=== PATIENT | female | born 1935 | race Caucasian/White ===

== ENCOUNTER 2018-12-08 01:05 | Inpatient (IN) | payer MEDICARE ==
[~2018-12-08] VITALS: Ht 157.5 cm; Wt 81.6 kg
[~2018-12-08 01:05] MED LIST: FLORANEX / LACT1 TAB PO; LOPRESSOR25 MG PO; MULTI-DAY VITAM1 TAB PO; OMEGA-3100 MG PO; PERCOCET 10/3251 TA1 PO; PROTONIX40 MG PO; SYNTHROID75 MCG PO; ZOLOFT25 MG PO
[2018-12-08 02:06] VITALS: BP 180/79
[2018-12-08 02:45] VITALS: BP 180/79; BMI 33.0
[2018-12-08] MEDS ORDERED: FISH OIL 1,0001 CA1 PO (03:25)
[2018-12-08] MEDS ORDERED: HYDROCHLOROTH12.5 M1 PO (03:26)
[2018-12-08] MEDS ORDERED: HYDROCODON-ACE1 EAC7 PO ×2 (03:28→03:29)
[2018-12-08] MEDS ORDERED: TOPROL XL100 MG PO (03:30)
[2018-12-08] MEDS ORDERED: OXYBUTYNIN CHLOR5 MG PO (03:33)
[2018-12-08] MEDS ORDERED: MIRALAX17 GM PO (03:35)
[2018-12-08] MEDS ORDERED: SEROQUEL50 MG PO (03:37)
[2018-12-08] MEDS ORDERED: XARELTO10 MG PO (03:39)
[2018-12-08] MEDS ORDERED: VITAMIN B-1100 M1 PO (03:41)
[2018-12-08] MEDS ORDERED: TRAZODONE HCL150 MG PO (03:42)
--- NOTE | 2018-12-08 03:44 | NUR ---
NEW PATIENT TO DOCTOR JOSE ON [facility] FROM [facility] FOR AGGRESSION. PATIENT WAS YELLING, THROWING SELF IN FLOOR, AND REFUSING CARE AT [facility]. PATIENT TRANSPORTED TO [facility] VIA EMS ON STRETCHER. UPON ARRIVAL, PATIENT WAS COOPERATIVE WITH CARE AND ADMISSION ASSESSMENTS. CONSENTS TO TREAT RECEIVED FROM PATIENT. PATIENT WANTS TO BE A FULL CODE. CODE WORD IS [place]. PATIENT LAYING IN BED WITH EYES OPEN WHILE REPEATEDLY COUNTING AND SAYING RANDOM WORDS.
[2018-12-08 06:51] LABS: BASOPHILS 0.3 % (0-2); EOSINOPHILS 3.7 % (0-7); HEMATOCRIT 36.6 % (36.0-48.0); HEMOGLOBIN 11.9 g/dL (12-16); IMMATURE GRANULOCYTES 0.5 % (0-5); LYMPHOCYTES 17.2 % (15-50); MCH 30.7 pg (26.0-34.0); MCHC 32.5 g/dL (31.0-37.0); MCV 94.6 fL (80.0-100.0); MEAN PLATELET VOLUME 10.4 fL (7.4-10.4); MONOCYTES 8.1 % (2-11); NEUTROPHILS 70.2 % (40-80); RBC 3.87 10x6/uL (4.00-5.40); RDW 14.3 % (11.5-14.5); WBC 11.8 10x3/uL (4.8-10.8)
[2018-12-08 06:59] LABS: PLATELET COUNT 400 10x3/uL (130-400)
[2018-12-08 07:14] LABS: ALBUMIN 2.9 g/dL (3.4-5.0); ANION GAP 19.1 mmol/L (8-16); BILIRUBIN - TOTAL 0.62 mg/dL (0.2-1.3); CALCIUM 8.9 mg/dL (8.5-10.1); CARBON DIOXIDE 22.9 mmol/L (21.0-32.0); CHOL - HDL RATIO 3.1 ratio (2.3-4.1); LDL-HDL RATIO 1.8 ratio (1.5-3.5); PROTEIN - SERUM 6.5 g/dL (6.4-8.2); THYROID STIMULATING HORMONE 6.39 uIU/mL (0.36-3.74)
[2018-12-08 09:59] VITALS: BMI 33.0
[2018-12-08 14:17] VITALS: Ht 157.5 cm; Wt 81.6 kg
--- NOTE | 2018-12-08 16:49 | NUR ---
confused and disoriented.yelling out,repeatedly saying same words and phrases over and over.flight of ideas.repeatedly counting.will not redirect.refused am meds.requires spoon feeding per staff. was here at 1430 and ordered 12mg ativan im now.had good response to ativan.will continue with plan of care,monitor for changes and safety.
[2018-12-08 19:56] VITALS: BP 126/57
--- NOTE | 2018-12-09 04:31 | NUR ---
B) patient is sedated and sleeping most of the time, arrouses to take medications, I) Administered scheduled medications as ordered, monitored for safety R) medication compliant, sleeping quietly P) Continue plan of care.
[2018-12-09 06:15] LABS: VITAMIN D 25 HYDROXY 25.4 ng/mL (30.0-100.0)
[2018-12-09 07:29] LABS: RAPID PLASMA REAGIN Non Reactive (Non Reactive)
[2018-12-09 08:08] LABS: BASOPHILS 0.3 % (0-2); HEMATOCRIT 34.3 % (36.0-48.0); IMMATURE GRANULOCYTES 0.4 % (0-5); LYMPHOCYTES 16.7 % (15-50); MCH 30.2 pg (26.0-34.0); MCHC 32.1 g/dL (31.0-37.0); MCV 94.2 fL (80.0-100.0); MEAN PLATELET VOLUME 10.7 fL (7.4-10.4); MONOCYTES 8.3 % (2-11); NEUTROPHILS 71.3 % (40-80); PLATELET COUNT 360 10x3/uL (130-400); RBC 3.64 10x6/uL (4.00-5.40); RDW 14.2 % (11.5-14.5); WBC 10.7 10x3/uL (4.8-10.8)
--- NOTE | 2018-12-09 09:43 | NUR ---
PATIENT YELLING AND DISRUPTIVE, ANXIOUS, ATIVAN 0.5 MG ADMIN PO.
[2018-12-09 09:45] LABS: APPEARANCE CLOUDY (CLEAR); BACTERIA MANY /hpf (NONE SEEN); BILIRUBIN NEGATIVE (NEGATIVE); COLOR YELLOW (YELLOW); EPITHELIAL CELLS 0-5 /hpf (0-5); GLUCOSE NEGATIVE (NEGATIVE); KETONE NEGATIVE (NEGATIVE); MUCUS <1+ /lpf (NONE SEEN); NITRITE POSITIVE (NEGATIVE); PROTEIN NEGATIVE (NEGATIVE); RED CELLS - URINE 0-5 /hpf (0-5); SPECIFIC GRAVITY 1.015 (1.005-1.020); UROBILINOGEN NORMAL (NORMAL); WHITE CELLS - URINE 25-50 /hpf (0-5)
[2018-12-09 09:46] LABS: TALC POWDER CRYSTALS OCC /hpf (NONE SEEN)
--- NOTE | 2018-12-09 10:00 | NUR ---
RECEIVED PATIENT IN DINING ROOM FOR B'FAST, ALERT, CALM, COOPERATIVE, VERY CONFUSED. SPEAKS IN WORD SALAD MANNER. YELLS ALOUD OCCASIONALLY, QUITE DISRUPTIVE IN GROUP. MEDS ADMIN PER ORDERS WITH COMPLETE MED COMPLIANCE NOTED. CONT POC INCLUDING MEDS AND GROUP THERAPY DIRECTED.
[2018-12-09 10:22] LABS: FOLATE (FOLIC ACID) - SERUM >20.0 ng/mL (>3.0)
[2018-12-09 10:37] VITALS: BP 147/73
--- NOTE | 2018-12-09 13:49 | PSY ---
PATIENT NAME:SHARON DESOUZA MEDICAL RECORD: [id number] : 37 LOCATION:[facility] ADMISSION DATE: 12/08/18 ACCOUNT: [id number] PSYCHIATRIC EVALUATION DATE OF EVALUATION: 12/08/18 IDENTIFYING DATA: The patient is 83 years old and she is admitted to the hospital on a voluntary basis. CHIEF COMPLAINT: Agitation. HISTORY OF PRESENT ILLNESS: The patient lives in the [facility]. She has been quite agitated there. She has very limited insight about her situation. Apparently, she has been throwing herself on the floor, yelling, and refusing care at the [facility]. The [facility] is unable to manage her. The degree of distress she is displaying is alarming and is a potential risk. The patient herself is unable or unwilling to give much in the way of useful history. It is clear she is quite confused. PAST MEDICAL HISTORY: Significant for hypothyroidism, hypertension, joint replacement. PAST PSYCHIATRIC HISTORY: Significant for depression, but I do not have details about its severity or extent. FAMILY HISTORY: Noncontributory. ALLERGIES: VALSARTAN. CURRENT MEDICATIONS: Include Protonix, hydrochlorothiazide, Toprol, Ditropan, MiraLax, Seroquel, Xarelto, Desyrel, Synthroid, Zoloft, and vitamins. SOCIAL HISTORY: The patient is . She does have adult children. She has no history of drug or alcohol abuse. MENTAL STATUS EXAMINATION: The patient is awake, alert and oriented to person and place, but not time or situation fully. Her mood is anxious. Her affect is constricted. Thought processes are circumstantial. Memory, concentration, and abstraction abilities are moderately impaired and she denies any active intent to harm herself or others as well as any overt psychotic symptoms. ASSETS: Supportive family members. LIABILITIES: Limited insight. DIAGNOSTIC IMPRESSION: AXIS I: Senile dementia of the Alzheimer's type with behavioral disturbances. AXIS II: None. AXIS III: Hypothyroidism, hypertension. AXIS IV: Moderate stressors. AXIS V: Global assessment of functioning is 30. PLAN: At this time, the patient is admitted to the hospital for a comprehensive medical, psychological, and social evaluation. She will be treated with mood stabilizing and memory enhancing medications. Her long-term prognosis is guarded. TRANSINT:[id number] Voice Confirmation ID: [id number] DOCUMENT ID: [id number] DENIS GARCIA MD at 1349 CC: [id number] DICTATION DATE: 12/08/18 1611 REDUCING SALON ATTENDANT: 12/08/18 1652 ADM IN [place] [address] [place] [address]
[2018-12-09 20:15] VITALS: BP 138/70
--- NOTE | 2018-12-09 21:06 | NUR ---
PATIENT IS CONFUSED, MUMBLING WORDS, COMPLIANT WITH MEDS (CRUSHED) WITH COAXING, NO ADVERSE SIDE EFFECTS NOTED, WILL FOLLOW POC
[2018-12-10 08:12] VITALS: BP 120/72
--- NOTE | 2018-12-10 08:39 | PN ---
PATIENT:SHARON DESOUZA MEDICAL RECORD: [id number] LOCATION:[facility] ADMISSION DATE: 12/08/18 PROGRESS NOTE DATE OF SERVICE: 12/09/2018 SUBJECTIVE: The patient's case was discussed with staff. She has no new complaint. OBJECTIVE: The patient is severely impaired cognitively. She has very limited insight about her situation. She has not been openly aggressive. ASSESSMENT: No change in diagnoses. PLAN: I am going to keep her on current medicines today. She will be maintained on these medicines, but in addition to this I am going to give her a low dose of Klonopin to assist with her current level of anxiety. I think this will just be a temporary thing for right now given how agitated she is. TRANSINT:[id number] Voice Confirmation ID: [id number] DOCUMENT ID: [id number] DENIS GARCIA MD at 0839 CC: [id number] DICTATION DATE: 12/09/18 1557 TRANSPORT NURSE: 12/09/18 2219 ADM IN [facility] [address] [place] [address]
--- NOTE | 2018-12-10 08:54 | NUR ---
PT IS YELLING AND VERY DISRUPTIVE TO OTHERS PEERS. PT IS VERY AXIOUS. ATIVAN 0.5MG PO GIVEN PER PRN ORDER. WILL CONTINUE TO MONITOR Q 15 MINUTES FOR SAFETY.
--- NOTE | 2018-12-10 11:33 | NUR ---
PT CONTINUES TO YELL OUT AND BE DISRUPTIVE AND ANXIOUS. ATIVAN 0.5MG PO GIVEN PER PRN ORDERS. WILL CONTINUE TO MONITOR Q 15 MINUTES FOR SAFETY.
--- NOTE | 2018-12-10 16:23 | NUR ---
The patient's and cousin are here visiting and they are asking questions about "Where will she go from here." Explained to them "If she does not clear then she will go to a senior living facility or she will need 24/7 care, it will depend on how she is doing and what the advises." The family verbalizes understanding.
[2018-12-10 20:05] VITALS: BP 164/61
--- NOTE | 2018-12-10 22:00 | NUR ---
PATIENT IS CALMER THIS EVENING THAN THE DAY BEFORE, SHE HOLDS EYE CONTACT FAIRLY WELL, SHE DID NOT NEED MUCH COAXING INTO TAKING MEDS YESTERDAY, NO ADVERSE EFFECTS NOTED. WILL FOLLOW POC
[2018-12-11 08:00] VITALS: BP 133/88
--- NOTE | 2018-12-11 08:00 | NUR ---
PT IS AWAKE AND ALERT TO PERSON ONLY. PT SITTING IN RECLINING CHAIR BY NURSES STATION. CALM AND COOPERATIVE WITH ASSESSMENT. REDIRECT AND REORIENT NEEDED. PRESCRIBED MEDS PROVIDED. MED COMPLIANT. PT NOTED HELPING ANOTHER PT SETUP BREAKFAST TRAY. PT SEEMS TO BE CALMER TODAY. FALL PRECAUTIONS IN PLACE. WILL CONTINUE TO MONITOR Q 15 MINUTES FOR SAFETY. WILL CPOC.
--- NOTE | 2018-12-11 10:30 | NUR ---
PT DRG CHANGED PER ORDER. DRY, CLEAN AND INTACT. NO DRAINAGE NOTED. WILL CONTINUE TO MONITOR Q 15 MINUTES FOR SAFETY. WILL CPOC.
--- NOTE | 2018-12-11 11:37 | PN ---
PATIENT:SHARON DESOUZA MEDICAL RECORD: [id number] LOCATION:[facility] ADMISSION DATE: 12/08/18 PROGRESS NOTE DATE OF SERVICE: 12/10/2018 SUBJECTIVE: The patient's case was discussed with staff. She has no new complaint. OBJECTIVE: The patient is significantly and seriously impaired cognitively. She has very poor insight about her situation. She was very agitated last night and required p.r.n. Ativan for this agitation. She is eating almost nothing and will be started on Megace to assist with appetite stimulation. TRANSINT:[id number] Voice Confirmation ID: [id number] DOCUMENT ID: [id number] DENIS GARCIA MD at 1137 CC: [id number] DICTATION DATE: 12/10/18 0847 CLINICAL DOCUMENTATION SPECIALIST: 12/10/18 0859 ADM IN [place] [address] [place] [address]
--- NOTE | 2018-12-11 11:47 | NUR ---
LAB CALLED [facility]. IS POSTIVE FOR E. COLI IN THE URINE. NEW ORDER F0R CONTACT ISOLATION.
[2018-12-11 19:28] VITALS: BP 108/50
--- NOTE | 2018-12-11 23:17 | NUR ---
RECEIVED IN DAYROOM. SITTING QUIETLY IN CHAIR. NOT SOCIALIZING WITH PEERS. CALM AND COOPERATIVE WITH CARE AND ASSESSMENT. TOOK MEDS AND SPIT THEM OUT STATING "THESE MEDS ARE GOING TO KILL ME." REFUSED TO TAKE ANY MEDS. CONTINUES TO SIT QUIETLY IN CHAIR. CONTINUE PLAN OF CARE
--- NOTE | 2018-12-12 08:04 | NUR ---
REC'D PT IN HALLWAY IN RECLINING CHAIR. PT IS YELLING OUT AND VERY DISRUPTIVE TO OTHER PEERS. PT IS YELLING OUT" EVERYONE IS OUT TO POISON ME." PT CONTINUES TO TRY TO REMOVE ISOLATION GOWN AND GLOVES. PT IS THROWING GOWN AND GLOVES AT STAFF. WHEN TRYING TO REDIRECT PT STARTS KICKING AND ATTEMPTING TO HIT STAFF. PT UNABLE TO REDIRECT AT THIS TIME. PT REFUSES ALL MEDICATIONS THIS AM. PRN ATIVAN 0.5IM AND HALDOL 2MG IM GIVEN PER PRN ORDER. ISOLATION GOWN AND GLOVES PUT BACK ON THE PT PER STAFF. FALL PRECAUTIONS IN PLACE. WILL CONTINUE TO MONITOR Q 15 MINUTES FOR SAFETY. WILL CPOC.
--- NOTE | 2018-12-12 09:00 | NUR ---
PRN MED EFFECTIVE AT THIS TIME. PT IS RESTING IN RECLINING CHAIR WITH ISOLATION GOWN AND GLOVES IN PLACE. WILL CONTINUE TO MONITOR Q 15 MINUTES FOR SAFETY. WILL CPOC.
--- NOTE | 2018-12-12 13:48 | NUR ---
Nutrition Follow Up: Chart reviewed Diet: Regular PO Intake: 12% meal avg BM: 12/09/18 Labs reviewed Meds noted including Megace Rec continue current diet. Will continue to honor food preferences and will provide supplements prn. Rec continue appetite stimulant. RD following.
--- NOTE | 2018-12-12 15:58 | PN ---
PATIENT:SHARON DESOUZA MEDICAL RECORD: [id number] LOCATION:[facility] ADMISSION DATE: 12/08/18 PROGRESS NOTE DATE OF SERVICE: 12/11/2018 SUBJECTIVE: The patient's case was discussed with staff. She has no new complaint. OBJECTIVE: The patient was quite agitated yesterday. She was disruptive, rambling, and quite agitated. She was yelling things that were incoherent, and on 2 separate occasions yesterday, she required p.r.n. Ativan to calm her. She is asking for her , Terrance, today and becomes upset when told that he is not here and will not be here until visiting. She is insisting that she is and is very distressed about this. She cannot be convinced that this is not the case. She has taken her medicines, which is something that hopefully will allow me to better treat her and bring her symptoms under control. She ate 0 breakfast yesterday, 0 lunch, and only 15% of her dinner. When asked about this, she does not answer me coherently and is just talking about things that are delusional. ASSESSMENT: Senile dementia of the Alzheimer's type with behavioral disturbances. PLAN: The patient will be maintained on her current medications. I am going to start her on a low dose of Geodon for its antipsychotic effects. I consider her to be grossly disorganized and severely agitated for reasons discussed above. She is not eating adequately, and in my view, is currently not safe or manageable in a alf setting. TRANSINT:[id number] Voice Confirmation ID: [id number] DOCUMENT ID: [id number] DENIS GARCIA MD at 1558 CC: [id number] DICTATION DATE: 12/11/18 1201 EDUCATOR SENIOR CLINICAL: 12/11/18 1348 ADM IN [place] [address] [place] [address]
[2018-12-12 20:54] VITALS: BP 138/90
--- NOTE | 2018-12-12 22:03 | NUR ---
RECEIVED IN DAYROOM. SITTING IN CHAIR WITH PEERS AT HER SIDE. CALM AND COOPERATIVE WITH CARE AND ASSESSMENT. NO SIGNS OF AGGRESSION. REDIRECT AND REORIENT NEEDED. RESTING IN BED WITH EYES CLOSED AT THIS TIME. CONTINUE PLAN OF CARE.
[2018-12-13 08:30] VITALS: BP 167/87
--- NOTE | 2018-12-13 10:48 | NUR ---
RECEIVED PATIENT IN DINING ROOM FOR B'FAST, ALERT, CALM, TALKATIVE, IMPROVED COGNITION NOTED SINCE THIS NURSE'S PREVIOUS ASSESSMENT. MEDS ADMIN PER ORDERS WITH COMPLETE MED COMPLIANCE NOTED. COOPERATIVE WITH STAFF AND GROUP THERAPY. CONT POC INCLUDING MEDS AND GROUP THERAPY DIRECTED.
--- NOTE | 2018-12-13 12:58 | PN ---
PATIENT:SHARON DESOUZA MEDICAL RECORD: [id number] LOCATION:[facility] ADMISSION DATE: 12/08/18 PROGRESS NOTE DATE OF SERVICE: 12/12/2018 SUBJECTIVE: The patient's case was discussed with staff. She has no new complaint. OBJECTIVE: The patient is noncompliant with medicines. She has been agitated and not eating or drinking. ASSESSMENT: No change in diagnoses. PLAN: The patient's long-term prognosis is guarded. She is very disruptive at this time. Her prognosis is unfortunately exceedingly poor, especially if she will not take medicines, eat, or drink. TRANSINT:[id number] Voice Confirmation ID: [id number] DOCUMENT ID: [id number] DENIS GARCIA MD at 1258 CC: [id number] DICTATION DATE: 12/12/18 1631 SCHEDULE ANNOUNCER: 12/12/18 1902 ADM IN [facility] [address] [place] [address]
[2018-12-13 19:58] VITALS: BP 140/69
--- NOTE | 2018-12-14 04:40 | NUR ---
B) Patient is alert and oriented to person and place, social with staff, able to have a coversation with out wordsalad I) Administered scheduled medications as ordered, monitored for needs, R) Mediation compliant, pleasant and improving P) Continue plan of care.
[2018-12-14 08:30] VITALS: BP 150/73
--- NOTE | 2018-12-14 10:00 | NUR ---
RECEIVED PATIENT IN DINING ROOM FOR B'FAST, ALERT, RESTLESS, REPEATEDLY STATES,"1,2 3, NO MORE MEDICINE, 1, 2, 3, NO MORE MEDICINE,.........." PATIENT NOTEDLY MORE CONFUSED TODAY THAN YESTERDAY. REFUSED TO EAT ANY BREAKFAST. PATIENT INITIALLY REFUSED ALL MEDS, BUT EVENTUALLY TOOK THEM IN CHOCOLATE PUDDING. PRESENT FOR GROUP WITH LITTLE PARTICIPATION NOTED. CONT POC INCLUDING MEDS AND GROUP THERAPY DIRECTED.
--- NOTE | 2018-12-14 15:51 | NUR ---
PATIENT EXHIBITED ANGRY, ANXIOUS MOOD ALL SHIFT. REPEATEDLY TOLD OF NURSE WAKING HER UP IN THE MIDDLE OF THE NIGHT TO GIVE HER AN ATB INJECTION. EXPLAINED TO PATIENT THAT SHE NEEDED HER MEDICATION DUE TO UTI.
--- NOTE | 2018-12-14 16:32 | PN ---
PATIENT:SHARON DESOUZA MEDICAL RECORD: [id number] LOCATION:[facility] ADMISSION DATE: 12/08/18 PROGRESS NOTE DATE OF SERVICE: 12/13/2018 SUBJECTIVE: The patient's case was discussed with staff. She has no new complaint. OBJECTIVE: The patient is severely impaired cognitively, but has not been aggressive. She is tolerating her medications reasonably well. She has poor insight about her situation. ASSESSMENT: Senile dementia of the Alzheimer's type with behavioral disturbances. PLAN: The patient is going to be treated with current medicines, which I have reviewed. Her prognosis is guarded. It is clear she is going to need 72-bdbi-a-day supervision. Her insists that all of this is new since the surgery, but the symptoms look every bit like an advanced dementia. I do not think there is anything that I can identify that would be a reversible cause of this confusion. I think the best that can be hoped for is that she can have her appetite improved and be a little calmer and then we can assist the with an appropriate level of care. It is my recommendation that she have 19-ntmr-o-day supervision. TRANSINT:[id number] Voice Confirmation ID: [id number] DOCUMENT ID: [id number] DENIS GARCIA MD at 1632 CC: [id number] DICTATION DATE: 12/13/182004 CLOCK AND WATCH ASSEMBLER: 12/14/18 0108 ADM IN [facility] [address] [place] [address]
--- NOTE | 2018-12-14 18:33 | NUR ---
PATIENT TEARFUL AT TIMES, THINKS THAT STAFF IS PLOTTING TO KILL HER. PATIENT CONSOLED AND RE-DIRECTED.
[2018-12-14 20:20] VITALS: BP 172/91
--- NOTE | 2018-12-15 00:34 | NUR ---
RECEIVED IN DAYROOM. SITTING IN WHEELCHAIR AND YELLING OUT AT TIMES. REPEATEDLY STATING THAT EVERYONE IS TRYING TO KILL HER. REDIRECTED AND REORIENTED WITHOUT SUCCESS. PATIENT CONTINUED TO YELL OUT AND STATE THAT EVERYONE IS TRYING TO KILL HER. RESTING IN BED WITH EYES CLOSED AT THIS TIME. CONTINUE PLAN OF CARE.
[2018-12-15 10:20] VITALS: BP 134/68
--- NOTE | 2018-12-15 11:00 | NUR ---
B) The patient is clearing. She is making more sense. She is pleasant. She can stand with assist, she can walk with assist. She does complain that she can't just sit around, but she is not helping herself by sitting. I) Provide prescribed meds. R) The patient is compliant with meds. P) Continue POC.
--- NOTE | 2018-12-15 15:31 | PN ---
PATIENT:SHARON DESOUZA MEDICAL RECORD: [id number] LOCATION:[facility] ADMISSION DATE: 12/08/18 PROGRESS NOTE DATE OF SERVICE: 12/14/2018 SUBJECTIVE: The patient's case was discussed with staff. She has no new complaint. OBJECTIVE: The patient is very disorganized. She is making all sorts of bizarre statements about what is going on here that frankly just does not make any sense. It is difficult to follow. When I tried to ask clarifying questions, she just gets mad. After a few minutes, I just had to give up without being able to really understand what she is wanting. Nevertheless, I have to say she is actually partially oriented today, which I think is a bit of an improvement. From everything that she was saying the one thing that I did understand is that she does not want to take a shot for her urinary tract infection, which is not something that I am prescribing, the educational fundraising director is, but I talked to her about the importance of this treatment, which she just flatly rejected saying that only 2 days of injections are enough to treat it instead of 7, which when I tried to explain the reason for the longer treatment, she just does not accept this. ASSESSMENT: Senile dementia of the Alzheimer's type with behavioral disturbances. PLAN: The patient will have her Zoloft increased slightly. Zoloft is being used to treat her depressed mood. Her long-term prognosis is guarded. TRANSINT:[id number] Voice Confirmation ID: [id number] DOCUMENT ID: [id number] DENIS GARCIA MD at 1531 CC: [id number] DICTATION DATE: 12/14/181710 BUILDING ADMIN: 12/14/182038 ADM IN [place] [id number] [place] [address]
[2018-12-15 19:42] VITALS: BP 110/62
--- NOTE | 2018-12-16 04:02 | NUR ---
B) Patient is alert and oriented to person and place, patient is talking and making sence I) Administered scheduled medications, maintained isolation protocols R) Mediation compliant, isolation compliant P) Continue plan of care.
[2018-12-16 09:25] VITALS: BP 158/69
--- NOTE | 2018-12-16 12:31 | PN ---
PATIENT:SHARON DESOUZA MEDICAL RECORD: [id number] LOCATION:[facility] ADMISSION DATE: 12/08/18 PROGRESS NOTE DATE OF SERVICE: 12/15/2018 SUBJECTIVE: The patient's case was discussed with staff. She has no new complaint. OBJECTIVE: The patient is not eating well. Her behavior is better, but she ate less than one full meal all day yesterday. When questioned about this, she is evasive and says that she ate more, but then goes on to say that it does not have much of an appetite. She is obese, so it is not an acute problem, but given the fact that she has an advanced dementia and is not eating, certainly has the potential to be a very serious problem down the road. ASSESSMENT: Senile dementia of the Alzheimer's type with behavioral disturbances. PLAN: Current medicines and therapies have been reviewed, both will be maintained. Long-term prognosis is guarded. TRANSINT:[id number] Voice Confirmation ID: [id number] DOCUMENT ID: [id number] DENIS GARCIA MD at 1231 CC: [id number] DICTATION DATE: 12/15/18 1634 SPEED RUNNER: 12/15/18 2356 ADM IN [place] [id number] [place] [address]
--- NOTE | 2018-12-16 13:30 | NUR ---
B) The patient in the am does well, her thoughts are clear, she makes better sense in conversation, but as the day progresses she becomes paranoid about staff poisoning her with the medications. She also talks and talks and will not open her eyes, she will not listen even with an explanation. She is assisted to stand and try to walk, but she makes excuses that she foesn't have her shoes and she doesn't want PT to come and walk her while she has to wear her yellow gown, yet she says "I am supposed to be here for rehab." I) Provide prescribed meds. R) The patient is compliant with much prompting. P) Continue POC.
--- NOTE | 2018-12-16 14:18 | NUR ---
Nutrition Follow Up: Chart reviewed Diet: Regular PO Intake: 41% meal avg - improving BM: 12/15/18 Labs reviewed Meds noted including Megace Rec continue current diet. Rec continue Megace. Will continue to honor food preferences and provide supplements prn. RD following.
--- NOTE | 2018-12-16 15:54 | NUR ---
Provided prophylactic Tamiflu first dose. The patient became paranoid and acting out, calling out to Madiha saying "don't let them do this to me." Tried to explain to her what it is and what is for and she said ok Tamiflu for the flu and then I went to give the pill to her and she said "No, No, I can not take any medicine, I do not want to ." Did have Madiha Cisneros assist me in providing the meds since they have a good rapport. The patient did take the pill, but again she became paranoid with her water she does not drink tap water, provided her a bottle of water and she refused it, saying "No, I see what you are trying to do."
[2018-12-16 20:06] VITALS: BP 165/71
--- NOTE | 2018-12-16 23:23 | NUR ---
PATIENT IS AWAKE, ALERT AND ORIENTED TO SELF ONLY, PATIENT TALKS ABOUT RANDOM THINGS, COMPLIANT WITH MEDS. NO ADVERSE REACTION NOTED. WILL FOLLOW POC
[2018-12-17 08:39] VITALS: BP 137/51
--- NOTE | 2018-12-17 11:23 | NUR ---
RECEIVED PATIENT IN DINING ROOM FOR B'FAST, ALERT, CONFUSED, ARGUMENTATIVE. MEDS ADMIN PER ORDERS WITH COMPLETE MED COMPLIANCE NOTED. QUIET MOOD DURING GROUP ACTIVITY. CONT POC INCLUDING MEDS AND GROUP THERAPY DIRECTED.
[2018-12-17 20:57] VITALS: BP 131/57
--- NOTE | 2018-12-18 03:47 | NUR ---
PATIENT IS VERY INTROVERTED, QUIET AND CAUTIOUS OF OTHERS, VERY LITTLE EYE CONTACT, COMPLIANT WITH MEDS. WILL FOLLOW POC
--- NOTE | 2018-12-18 10:10 | NUR ---
RECEIVED PATIENT IN DINING ROOM FOR B'FAST, ALERT, CALM, COOPERATIVE, CONFUSED. MEDS ADMIN PER ORDERS WITH COMPLETE MED COMPLIANCE NOTED. COOPERATIVE WITH GROUP AND STAFF. CONT POC INCLUDING MEDS AND GROUP THERAPY DIRECTED.
[2018-12-18 20:24] VITALS: BP 132/65
[2018-12-19 07:53] VITALS: BP 143/67
--- NOTE | 2018-12-19 13:33 | NUR ---
PT IS VERY INTROVERTED, QUIET AND CAUTIOUS OF OTHERS. VERY LITTLE EYE CONTACT. PRESCRIBED MEDS PROVIDED. MED COMPLIANT. WILL CPOC.
[2018-12-19 22:18] VITALS: BP 143/79
--- NOTE | 2018-12-20 00:47 | NUR ---
PATIENT RECEIVED IN DAYROOM IN [facility], ISOLATION GOWN IS ON. PATIENT IS CALM, ABLE TO MAKE NEEDS KNOWN, COMPLIANT WITH MEDS, NO ADVERSE REACION NOTED.
[2018-12-20 08:47] VITALS: BP 145/67
[2018-12-20] MEDS ORDERED: TAMIFLU75 MG PO (16:00)
[2018-12-20] MEDS ORDERED: ZOLOFT50 MG PO (16:03)
[2018-12-20] MEDS ORDERED: KLONOPIN0.5 MG PO (16:03)
[2018-12-20] MEDS ORDERED: GEODON20 MG PO (16:03)
[2018-12-20] MEDS ORDERED: MEGACE40 MG PO (16:04)
--- NOTE | 2018-12-20 16:25 | PN ---
PATIENT:SHARON SCHAEFFER MEDICAL RECORD: [id number] LOCATION:[facility] ADMISSION DATE: 12/08/18 PROGRESS NOTE DATE OF SERVICE: 12/19/2018 SUBJECTIVE: Ms. Schaeffer is an 83-year-old female who by report had hip surgery and while at rehab at the [facility] had mental status changes, throwing herself on the floor, yelling, refusing. When she first was admitted, she was easily aggravated, word salad. Now, she is somewhat improved. She is now more on the irritability range now that the treatment team reports that is refusing for her to go back to the [facility] and may have some cognitive deficits himself, but she has limited options for rehabilitation care otherwise. Just 2-3 days ago, she had refused to work with physical therapy. Apparently yesterday, she did do better, did work with them somewhat. She ate 25%, 25%, and 25%. Last bowel movement 17th. Sleeping 7-1/2 hours. OBJECTIVE: VITAL SIGNS: 97.7, 70, 16, 143/67, and 96%. ASSESSMENT: Unchanged. PLAN: We will continue to monitor for any mental status changes, irritability, and aggression. Try to get where she has the mental capacity to work with rehabilitation and social work will continue to try to find possible rehabilitation options that will work with her insurance. Case discussed with treatment team, chart reviewed, and the patient interviewed. TRANSINT:[id number] Voice Confirmation ID: [id number] DOCUMENT ID: [id number] ALEK MENCHACA MD at 1625 CC: [id number] DICTATION DATE: 12/19/18 1249 PRODUCTION ASSOCIATE: 12/19/18 1304 ADM IN [facility] [address] [place] [address]
--- NOTE | 2018-12-20 16:25 | PN ---
PATIENT:SHARON SCHAEFFER MEDICAL RECORD: [id number] LOCATION:[facility] ADMISSION DATE: 12/08/18 PROGRESS NOTE DATE OF SERVICE: 12/17/2018 SUBJECTIVE: Ms. Schaeffer is an 83-year-old female who was admitted after apparently anesthesia she became combative, confused, throwing herself on the floor, refusing care, and yelling. Nursing states when she first came here, she basically had almost word salad and so has somewhat improved. The patient continues irritable. She states that she continues to believe that she is here for rehabilitation. When I tried to redirect her, she states that she wants to get rehabilitation and if she is not getting rehab, she needs to go. Apparently several days ago, rehabilitation was tried and the patient refused to cooperate. However, her mentation does seem to have been improved since then according to nursing staff; however, they do note that as the day progresses, she gets more and more confused. OBJECTIVE: VITAL SIGNS: 98.2, 76, 20, 137/51, and 96%. ASSESSMENT: Unchanged. PLAN: We will ask PT to come may be particularly in the morning to see if she could be more cooperative then. We will continue her medication of Geodon to see if this is unchanged as again according to nursing report her thought process is slowly improving. The case discussed with nursing. Chart was reviewed and the patient interviewed. TRANSINT:[id number] Voice Confirmation ID: [id number] DOCUMENT ID: [id number] ALEK MENCHACA MD at 1625 CC: [id number] DICTATION DATE: 12/17/18 1528 STRESS ANALYST: 12/17/18 2317 ADM IN [facility] [address] [id number]
--- NOTE | 2018-12-20 16:36 | NUR ---
PT IS ALERT AND ORIENTED X 3. PT CAN MAKE NEEDS KNOWN TO STAFF. CALM AND COOPERATIVE WITH ASSESSMENT. MED COMPLIANT. NO AGGRESSION NOTED. WILL CONTINUE TO MONITOR Q 15 MINUTES FOR SAFETY. WILL CPOC.
[2018-12-20 19:49] VITALS: BP 126/66
--- NOTE | 2018-12-21 04:55 | NUR ---
B) Patient is alert and oriented to person and place, calm and cooperative, I) Administered scheduled medications as ordered, monitoed for safety R) Mediation compliant, no aggression noted, P) Continue plan of care.
[2018-12-21 08:12] VITALS: BP 108/59
--- NOTE | 2018-12-21 14:25 | NUR ---
NUTRITION F/U CHART REVIEWED. SPEECH THERAPY NOTE REVIEWED. PT RECEIVING MEGACE. TOLERATING REG DIET WITH 25 TO 100% INTAKE RECENT MEALS. +BM DOCUMENTED. RD FOLLOWING
--- NOTE | 2018-12-21 15:00 | NUR ---
PT DISCHARGE TO [facility] VIA TRANSPORT VAN. ALL DISCHARGE PAPERWORK FAXED AND COPY SENT WITH ACCESS REGISTRAR. NO S/SX OF DISTRESS NOTED.
--- NOTE | 2018-12-21 15:12 | NUR ---
KOMAL SPOKE WITH PT'S , DAVID THIS MONRING TO DISCUSS DISCHARGE PLANS. PT WILL BE GOING TO [facility] ONCE DON RETURNS TODAY. DAVID VOICED UNDERSTANDING OF PLANS AND APPRECIATION OF SERVICES.
--- NOTE | 2018-12-21 15:27 | NUR ---
PT IS ALERT AND ORIENTED X 3. CALM ABD COOPERATIVE WITH ASSESSMENT. MED COMPLIANT. NO AGGRESSION NOTED. WILL CPOC.
--- NOTE | 2018-12-24 12:52 | PN ---
PATIENT:SHARON SCHAEFFER MEDICAL RECORD: [id number] LOCATION:[facility] ADMISSION DATE: 12/08/18 PROGRESS NOTE DATE OF SERVICE: 12/20/2018 SUBJECTIVE: Ms. Schaeffer is an 83-year-old who got admitted after she became confused at rehab, refusing care, yelling, throwing herself on the floor. When I first met her on Wednesday, the patient was much more irritable, she over the course of several days has gotten more calm and appropriate. 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 She is to be discharged tomorrow for continuing rehabilitation. She is eating 50%, 50%, and 40%. She slept 6 hours. Last bowel movement on the . Her most recent vital signs 97.3, 20, 145/67, 95%, has a pulse rate of 127, which will be repeated. ASSESSMENT: Unchanged. PLAN: Discharge disposition when family has made a decision. Anticipate discharge tomorrow. Case discussed with nursing. Chart was reviewed and the patient interviewed. TRANSINT:[id number] Voice Confirmation ID: [id number] DOCUMENT ID: [id number] ALEK MENCHACA MD at 1252 CC: [id number] DICTATION DATE: 12/20/181809 RADIOISOTOPE TECHNICIAN: 12/20/18 2332 DIS IN 12/21/18 [facility] [address] [place] [address]
--- NOTE | 2018-12-24 12:52 | DS ---
PATIENT:SHARON SCHAEFFER :37 MEDICAL RECORD: [id number] DISCHARGE SUMMARY ADMISSION DATE: 12/08/18 DISCHARGE DATE: 12/21/18 HOSPITAL COURSE: Ms. Schaeffer is an 83-year-old female who had come from a local nursing facility [facility] after she had been refusing care, yelling on the floor, which retrospectively was thought to be a reaction to anesthesia because over the course of this admission she went from, according to staff report, almost word salad to irritability to quite normative behavior other than she was anxious to leave. Her discharge was held up in part because of placement issues, but again by the time of discharge, the patient had normative behavior. No suicidal or homicidal ideation. No auditory or visual hallucinations. No delusions. She was able to speak to me in a calm and appropriate manner. She was alert and oriented times 4. DISCHARGE DIAGNOSES: AXIS I: Mental status change secondary to anesthesia, thought to probable anesthesia meds, adjustment disorder with depressed mood, hypothyroidism, hypertension, and recent hip surgery. DISCHARGE MEDICATIONS: Include Zoloft 50 mg 1 p.o. every day, Geodon 20 mg b.i.d., Megace 40 mg b.i.d., clonazepam 0.25 mg b.i.d., Synthroid 75 mcg daily, trazodone 50 mg at bedtime, Xarelto 10 mg at bedtime, Ditropan 5 mg at bedtime, Protonix 40 mg every day, Toprol 100 mg every day, hydrochlorothiazide 12.5 mg every day, fish oil 1 capsule daily, MiraLax 17 grams p.r.n. DISCHARGE VITALS: Latest were 99, 60, 18, 108/59, and 98%. She was discharged to [facility]. Her followup care will be with the attending physicians up there. Case discussed with nursing, case discussed with treatment team. Chart was reviewed and the patient interviewed. TRANSINT:[id number] Voice Confirmation ID: [id number] DOCUMENT ID: [id number] ALEK MENCHACA MD at 1252 CC: [id number] DICTATION DATE: 12/21/18 1404 RAILROAD YARD WORKER: 12/22/18 0319 DIS IN 12/21/18 [id number] [place] [address]
--- NOTE | 2018-12-26 13:16 | PN ---
PATIENT:SHARON DESOUZA MEDICAL RECORD: [id number] LOCATION:[facility] ADMISSION DATE: 12/08/18 PROGRESS NOTE DATE OF SERVICE: 12/16/2018 SUBJECTIVE: The patient's case was discussed with staff. She has no new complaint. OBJECTIVE: The patient continues to be significantly agitated and difficult to redirect. She is clearly very angry, but cannot express or at least will not express why. It is my opinion that she is not really understanding herself, but nevertheless her mood state is terrible and she is rude and speaks condescending way toward everyone. ASSESSMENT: Senile dementia of the Alzheimer's type with behavioral disturbances. PLAN: The patient's current medicines will be maintained. I anticipate she can be returned to the detention soon. TRANSINT:[id number] Voice Confirmation ID: [id number] DOCUMENT ID: [id number] DENIS GARCIA MD at 1316 CC: [id number] DICTATION DATE: 12/16/18 1347 HAT LACER: 12/16/18 1430 DIS IN 12/21/18 [facility] [address] [place] [address]
== END 2018-12-21 15:00 | DRG 57 ==
LOC: D.PSYCH 01:05
PROVIDERS: Family Medicine; ADMIT Psychiatry & Neurology Psychiatry; ATTEND Psychiatry & Neurology Psychiatry
DX: G30.1 Alzheimer's disease with late onset (principal); F02.81 Dementia in other diseases classified elsewhere, unspecified severity, with behavioral disturbance; E03.9 Hypothyroidism, unspecified; I10 Essential (primary) hypertension; F43.21 Adjustment disorder with depressed mood; K21.9 Gastro-esophageal reflux disease without esophagitis; E55.9 Vitamin D deficiency, unspecified